=== PATIENT | female | born 1945 | race Caucasian/White ===

== ENCOUNTER 2024-07-20 11:00 | Observation (INO) | payer MEDICARE ==
[2024-07-20] MEDS ORDERED: Albuterol 2.5 MG (3 mL) NEB ONE ×2 (11:08)
[2024-07-20] MEDS ORDERED: Albuterol 1.25 MG (3 mL) NEB ONE (11:09)
[2024-07-20 11:34] LABS: #Basophils 0.07 10x3/uL (0.0-0.2); %Eosinophils 2.8 % (0.0-10.0); %Monocytes 7.3 % (0.0-10.0); %Neutrophils 66.6 % (42.0-75.0); Hematocrit 53.1 % (36.0-47.0); Hemoglobin 17.6 g/dL (12.0-16.0); Mean Corpuscular HGB CONC 33.1 g/dL (32.0-36.0); Mean Corpuscular Volume 108.6 fL (78.0-98.0); Mean Platelet Volume 11.2 fL (7.4-10.4); Platelet Count 216 10x3/uL (130-400); RBC Distribution Width 16.5 % (11.5-14.5); Red Blood Cell (RBC) Count 4.89 mill/uL (4.20-5.40)
[2024-07-20 13:09] LABS: Troponin I 0.029 ng/mL (< 0.028)
[2024-07-20] MEDS ORDERED: Furosemide 40 MG (4 mL) VIAL ONE (13:25)
[2024-07-20] MEDS ORDERED: Dexamethasone 10 MG/ML VIAL ONE (13:25)
[2024-07-20 15:37] LABS: Chloride 105 mmol/L (98-107); Potassium 3.8 mmol/L (3.5-5.1); Sodium 149 mmol/L (136-145)
[2024-07-20 15:38] LABS: Albumin 3.7 g/dL (3.1-4.5); Calcium 8.3 mg/dL (7.8-10.44)
[2024-07-20 15:39] LABS: Globulin 3.1 g/dL (2.4-3.5); Glucose 116 mg/dL (83-110); Protein, Total 6.8 g/dL (5.8-8.1)
[2024-07-20 15:40] LABS: Anion Gap 18 mmol/L (10-20); Carbon Dioxide 30 mmol/L (23-31)
[2024-07-20 15:42] LABS: Alkaline Phosphatase 99 U/L (40-110); Bilirubin, Total 0.4 mg/dL (0.3-1.2)
[2024-07-20 15:43] LABS: BUN (Urea Nitrogen) 21 mg/dL (9.8-20.1); Calc. Creatinine Clearance 0 mL/min (70-130); Estimated GFR 44
[2024-07-20 15:45] LABS: ALT (SGPT) Less than 7 U/L (Less than 34); AST (SGOT) 13 U/L (11-34)
[2024-07-20] MEDS ORDERED: Nitroglycerin 0.4 MG TAB (25 Tab Bottle) SL PRN (15:54)
[2024-07-20] MEDS ORDERED: Bisacodyl 5 MG TAB PO PRN (15:54)
[2024-07-20] MEDS ORDERED: Ondansetron PF 4 MG/2 ML Vial IVP PRN (15:54)
[2024-07-20] MEDS ORDERED: Acetaminophen 650 MG Suppository PR PRN (15:54)
[2024-07-20] MEDS ORDERED: Ondansetron ODT 4 MG TAB PO PRN (15:54)
[2024-07-20] MEDS ORDERED: Senokot S 8.6-50 MG TAB PO PRN (15:54)
[2024-07-20] MEDS ORDERED: Ipratropium/Albuterol 3 ML NEB NEB PRN (16:22)
[2024-07-20] MEDS ORDERED: LevoFLOXacin 750 MG TAB PO SCH (16:22)
[2024-07-20 16:40] VITALS: BMI 31.0
[2024-07-20] MEDS: LevoFLOXacin 750 MG TAB PO SCH (17:43)
[2024-07-20] MEDS: Ipratropium/Albuterol 3 ML NEB NEB SCH (18:37)
[2024-07-20] MEDS: Mometasone 100 MCG/Formoterol 5 MCG 120 PUFF INHALER INH SCH (18:42)
[2024-07-20] MEDS: Acetaminophen 325 MG TAB PO PRN (20:31)
[2024-07-20] MEDS: Lisinopril 20 MG TAB PO SCH (20:31)
[2024-07-20] MEDS: Heparin 5,000 UNITS/ML VIAL SC SCH (20:32)
[2024-07-20 21:16] LABS: Troponin I 0.028 ng/mL (< 0.028)
[2024-07-21 05:41] LABS: Chloride 105 mmol/L (98-107); Potassium 4.8 mmol/L (3.5-5.1); Sodium 145 mmol/L (136-145)
[2024-07-21 05:42] LABS: Calcium 8.5 mg/dL (7.8-10.44); Glucose 129 mg/dL (83-110)
[2024-07-21 05:43] LABS: Anion Gap 19 mmol/L (10-20); Carbon Dioxide 26 mmol/L (23-31); Triglycerides 93 mg/dL (Less than 150)
[2024-07-21 05:46] LABS: BUN (Urea Nitrogen) 27 mg/dL (9.8-20.1); Calc. Creatinine Clearance 56 mL/min (70-130); Estimated GFR 49
[2024-07-21 05:48] LABS: Cardiac Risk 2.5 (Less than 4.5); Cholesterol 133 mg/dl (< 200 Desired); HDL Cholesterol 53 mg/dL (>60 Neg Risk); LDL Cholesterol, Calculated 61 mg/dL
[2024-07-21] MEDS: Amlodipine 5 MG TAB PO SCH (08:42)
[2024-07-21] MEDS: Isosorbide Mononitrate 30 MG ER.TAB PO SCH (08:42)
[2024-07-21] MEDS: Cilostazol 100 MG TAB PO SCH (08:42)
[2024-07-21] MEDS: predniSONE 20 MG TAB PO SCH (08:43)
[2024-07-21] MEDS: Pantoprazole 40 MG DR.TAB PO SCH (08:43)
[2024-07-21] MEDS: Aspirin Chewable 81 MG TAB PO SCH (08:43)
[2024-07-21] MEDS: Torsemide 20 MG TAB PO SCH (08:43)
[2024-07-21] MEDS: LevoFLOXacin 750 MG TAB PO SCH (08:43)
[2024-07-21 09:18] LABS: #Basophils 0.03 10x3/uL (0.0-0.2); #Eosinophils Less than 0.03 10x3/uL (0.0-0.7); %Basophils 0.4 % (0.0-1.0); %Lymphocytes 8.8 % (21.0-51.0); %Monocytes 5.9 % (0.0-10.0); %Neutrophils 84.6 % (42.0-75.0); Hematocrit 51.5 % (36.0-47.0); Hemoglobin 16.1 g/dL (12.0-16.0); Mean Corpuscular HGB CONC 31.3 g/dL (32.0-36.0); Mean Corpuscular Hemoglobin 35.2 pg (27.0-31.0); Mean Corpuscular Volume 112.4 fL (78.0-98.0); Mean Platelet Volume 11.4 fL (7.4-10.4); Platelet Count 181 10x3/uL (130-400); RBC Distribution Width 16.3 % (11.5-14.5); Red Blood Cell (RBC) Count 4.58 mill/uL (4.20-5.40)
[2024-07-21 11:07] VITALS: BP 155/74; TEMP 97.2
[2024-07-21 11:19] LABS: Anisocytosis MARKED = >30 cells HPF (0-5); Macrocytosis MODERATE=16-30 cells HPF (0-5); Platelet Adequacy Comment Platelets Normal; Polychromasia SLIGHT = 2-3 cells HPF (0-2)
== END 2024-07-21 16:03 | disposition home or self-care (01) ==
LOC: ERS 11:00 → ERHOLD 14:29 → INTOOBSV 14:29 → 2NO 18:17
PROVIDERS: ADMIT Family Medicine; ATTEND Internal Medicine
PROC: B24BZZZ Ultrasonography of Heart with Aorta (ICD-10-PCS; principal; 2024-07-20)
DX: J96.20 Acute and chronic respiratory failure, unspecified whether with hypoxia or hypercapnia (principal); J44.1 Chronic obstructive pulmonary disease with (acute) exacerbation; I21.A1 Myocardial infarction type 2; E87.1 Hypo-osmolality and hyponatremia; D75.1 Secondary polycythemia; F17.200 Nicotine dependence, unspecified, uncomplicated; Z90.710 Acquired absence of both cervix and uterus; Z88.0 Allergy status to penicillin; Z79.82 Long term (current) use of aspirin; Z79.2 Long term (current) use of antibiotics; Z79.899 Other long term (current) drug therapy
CPT/HCPCS: 71045 ×2; 80048; 80053; 80061; 83880; 83930; 84484 ×2; 85025 ×2; 93005; 93306; 94640 ×4; 96372 ×2; 96374; 96375; 99285; G0378 ×3; J1100; J1644 ×2; J1940; 36415; J7512; J7611; J7620